=== PATIENT | female | born 1975 | race Caucasian/White ===

== ENCOUNTER 2017-01-26 22:53 | Emergency (ER) | payer BC ==
[2017-01-26] MEDS ORDERED: HYDROcodone/ACETAMINOPHEN 1 EACH TABLET PO ONE (23:07)
[2017-01-26] MEDS ORDERED: ceFAZolin SODIUM 1 GM in DEXTROSE 5 % IN WATER 100 ML IV ONE ×2 (23:07)
[2017-01-26 23:19] LABS: Hematocrit 39.2 % (37.0-47.0); Hemoglobin 12.8 gm/dL (12.5-16.0); Mean Cell Volume 92.5 fl (78-100); Mean Corpuscular Hemoglobin 30.2 pg (27-31); Mean Corpuscular Hgb Conc 32.7 g/dl (32-36); Mean Platelet Volume 8.9 fl (6.0-9.5); Neutrophil % 39.4 % (42-75.0); Platelet Count 269 K/mm3 (150-450); Red Blood Count 4.24 M/mm3 (4.2-5.4); Red Cell Distribution Width 13.6 % (11.5-14.0); White Blood Count 7.6 K/mm3 (4.0-10.5)
[2017-01-26] MEDS ORDERED: HYDROcodone/ACETAMINOPHEN 1 EACH TABLET ONE (23:19)
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
[2017-01-26 23:33] LABS: Anion Gap 13.8 mmol/L (6.8-13.8); BUN/Creatinine Ratio 12.7 (9.0-21.6); Bilirubin, Total 0.7 mg/dL (0.0-1.1); Ca. Corrected For Albumin 8.1 mg/dL (8.4-10.2); Calcium * 8.4 mg/dL (7.9-10.9); Potassium 3.8 mmol/L (3.4-4.6); Total Protein 7.3 gm/dL (6.2-8.2)
[2017-01-27 00:44] VITALS: BP 118/82
[2017-01-27] MEDS ORDERED: MORPHINE SULFATE 4 MG/ML SYRG IV ONE (01:10)
[2017-01-27] MEDS ORDERED: MORPHINE SULFATE 4 MG/ML SYRG ONE (01:10)
== END 2017-01-27 01:15 | disposition short-term general hospital (02) ==
LOC: ER 22:53
DX: S05.41XA Penetrating wound of orbit with or without foreign body, right eye, initial encounter (principal); V86.69XA Passenger of other special all-terrain or other off-road motor vehicle injured in nontraffic accident, initial encounter; Y93.I9 Activity, other involving external motion; Y92.9 Unspecified place or not applicable
CPT/HCPCS: 36415; 70450; 70486; 72125; 80053; 85025; 96365; 96375; 99285; G0481